=== PATIENT | female | born 1965 | race Hispanic/Latino ===

== ENCOUNTER 2021-05-19 18:06 | Emergency (ER) | payer OTHER ==
[~2021-05-19] VITALS: Ht 162.6 cm; Wt 86.2 kg
[2021-05-19 18:11] VITALS: BP 129/73
== END 2021-05-19 18:59 | disposition left against medical advice (07) ==
LOC: EDH 18:06
DX: R06.02 Shortness of breath (principal); Z53.21 Procedure and treatment not carried out due to patient leaving prior to being seen by health care provider